=== PATIENT | male | born 1985 | race Asian ===

== ENCOUNTER 2017-01-26 20:29 | Emergency (ER) | payer MEDICAID, OTHER ==
[2017-01-26] MEDS ORDERED: EPINEPHRINE INJ/PF 1 MG/1 ML AMPULE SUBCUT PRN (20:50)
[2017-01-26] MEDS ORDERED: FAMOTIDINE 20 MG TABLET PO ONE (20:52)
--- NOTE | 2017-01-26 20:55 | ER Document Report ---
ED Medical Screen (RME) - General Chief Complaint: Allergic Reaction Stated Complaint: RASH Time Seen by Provider: 01/26/17 20:49 Notes: 31-year-old has hives to the face and all over. Only known recent ingestion is an [id number] sinus product containing Tylenol, phenylephrine, and guaifenesin. There is no dye color in the tablets. He does list an allergy to diphenhydramine, chlorpheniramine, phenylephrine and pseudoephedrine. His only real medication is Risperdal. I have greeted and performed a rapid initial assessment of this patient. A comprehensive ED assessment and evaluation of the patient, analysis of test results and completion of the medical decision making process will be conducted by additional ED providers. TRAVEL OUTSIDE OF THE [place] IN LAST 30 DAYS: No - Related Data Allergies/Adverse Reactions: chlorpheniramine maleate [From Robitussin Cough & Cold] Allergy (Verified 20:49) dextromethorphan HBr [From Robitussin Cough & Cold] Allergy (Verified 01/26/17 20:49) diphenhydramine HCl [From Robitussin Cough & Cold] Allergy (Verified 01/26/17 20 :49) phenylephrine HCl [From Robitussin Cough & Cold] Allergy (Verified 01/26/17 20: 49) pseudoephedrine HCl [From Robitussin Cough & Cold] Allergy (Verified 01/26/17 20 :49) Past Medical History - Social History Chew tobacco use (# tins/day): No Frequency of alcohol use: None Drug Abuse: None Renal/ Medical History: Denies: Hx Peritoneal Dialysis Psychiatric Medical History: Reports: Hx Depression, Hx Schizophrenia Surgical Hx: Negative - Immunizations Hx Diphtheria, Pertussis, Tetanus Vaccination: No - unknown History of Influenza Vaccine for 01/2017 - 06/2017 Season: No Physical Exam - Vital signs Vitals: Temp Pulse Resp BP Pulse Ox 97.6 F 114 H 16 143/78 H 97 01/26/17 20:44 01/26/17 20:44 01/26/17 20:44 01/26/17 20:44 01/26/17 20:44 Course - Vital Signs Vital signs: Temp Pulse Resp BP Pulse Ox 97.6 F 114 H 16 143/78 H 97 01/26/17 20:44 01/26/17 20:44 01/26/17 20:44 01/26/17 20:44 01/26/17 20:44
[2017-01-26] MEDS ORDERED: DEXAMETHASONE 4 MG TABLET PO ONE (21:15)
[2017-01-26] MEDS ORDERED: EPINEPHRINE INJ/PF 1 MG/1 ML AMPULE IM ONE (21:15)
--- NOTE | 2017-01-26 21:17 | ER Document Report ---
ED General - General Chief Complaint: Allergic Reaction Stated Complaint: RASH Time Seen by Provider: 01/26/17 20:49 Notes: Patient is a 31-year-old male with a past medical history who presents with acute onset of urticaria, facial swelling, difficulty breathing and lightheadedness after taking a combo cold and nasal congestion medication that contained acetaminophen, guaifenesin, and phenylephrine. Approximately 40 minutes of taking his medication the symptoms did present. They have been getting progressively worse since onset. Nothing improves or worsens his symptoms. His mother the bedside does report that as a child he did have a similar reaction to a cold medication at that time but she is uncertain of the medication that did treatment reaction. TRAVEL OUTSIDE OF THE [place] IN LAST 30 DAYS: No - Related Data Allergies/Adverse Reactions: chlorpheniramine maleate [From Robitussin Cough & Cold] Allergy (Verified 20:49) dextromethorphan HBr [From Robitussin Cough & Cold] Allergy (Verified 01/26/17 20:49) diphenhydramine HCl [From Robitussin Cough & Cold] Allergy (Verified 01/26/17 20 :49) phenylephrine HCl [From Robitussin Cough & Cold] Allergy (Verified 01/26/17 20: 49) pseudoephedrine HCl [From Robitussin Cough & Cold] Allergy (Verified 01/26/17 20 :49) Past Medical History - General Information source: Patient - Social History Smoking Status: Current Every Day Smoker Chew tobacco use (# tins/day): No Frequency of alcohol use: None Drug Abuse: None Lives with: Family Family History: Reviewed & Not Pertinent Patient has suicidal ideation: No Patient has homicidal ideation: No Renal/ Medical History: Denies: Hx Peritoneal Dialysis Psychiatric Medical History: Reports: Hx Depression, Hx Schizophrenia Surgical Hx: Negative - Immunizations Hx Diphtheria, Pertussis, Tetanus Vaccination: No - unknown Review of Systems - Review of Systems Notes: Constitutional: Negative for fever. HENT: Negative for sore throat. Eyes: Negative for visual changes. Cardiovascular: Negative for chest pain. Respiratory: Positive for shortness of breath. Gastrointestinal: Negative for abdominal pain, vomiting or diarrhea. Genitourinary: Negative for dysuria. Musculoskeletal: Negative for back pain. Skin: Positive for rash. Neurological: Negative for headaches, weakness or numbness. 10 point ROS negative except as marked above and in HPI. Physical Exam - Vital signs Vitals: Temp Pulse Resp BP Pulse Ox 97.6 F 114 H 16 143/78 H 97 01/26/17 20:44 01/26/17 20:44 01/26/17 20:44 01/26/17 20:44 01/26/17 20:44 Interpretation: Tachycardic Notes: PHYSICAL EXAMINATION: GENERAL: Well-appearing, well-nourished and in no acute distress. HEAD: Atraumatic, normocephalic. EYES: Pupils equal round and reactive to light, extraocular movements intact, sclera anicteric, conjunctiva are normal. ENT: nares patent, oropharynx clear without exudates. Moist mucous membranes. NECK: Normal range of motion, supple without lymphadenopathy LUNGS: Breath sounds clear to auscultation bilaterally and equal. Scant wheezing on the inspiratory phase. HEART: Regular rate and rhythm without murmurs ABDOMEN: Soft, nontender, normoactive bowel sounds. No guarding, no rebound. No masses appreciated. EXTREMITIES: Normal range of motion, no pitting or edema. No cyanosis. NEUROLOGICAL: No focal neurological deficits. Moves all extremities spontaneously and on command. PSYCH: Normal mood, normal affect. SKIN: Warm, Dry, normal turgor, diffuse urticaria over the chest, bilateral upper extremities and neck Course - Re-evaluation Re-evalutation: 01/26/17 21:16 Patient presents with acute anaphylaxis with facial swelling, diffuse urticaria and wheezing. Patient in triage was immediately given famotidine and subcutaneous epinephrine. As soon as the patient was brought back to the emergency department he was again reassess. I found patient to be tachycardic although in no acute distress. Remains with diffuse urticaria and scant wheezing. Will give an additional dose of 0.5 mg of intramuscular epinephrine and oral dexamethasone. 01/26/17 22:04 Patient remains without any further urticarial lesions, wheezing, stridor, facial swelling and has not had any vomiting or diarrhea. I have informed him that he is never to take dexamethasone or guaifenesin again is 1 of these 2 substances is causing him to have an anaphylactic reaction and he apparently had a similar symptom as a child after receiving a cough and cold medicine. At this time will discharge with return precautions and follow-up recommendations. Verbal discharge instructions given a the bedside and opportunity for questions given. Medication warnings reviewed. Patient is in agreement with this plan and has verbalized understanding of return precautions and the need for primary care follow-up in the next 24-72 hours. - Vital Signs Vital signs: Temp Pulse Resp BP Pulse Ox 97.6 F 114 H 22 H 149/82 H 97 01/26/17 20:44 01/26/17 20:44 01/26/17 22:00 01/26/17 22:00 01/26/17 22:00 Discharge - Discharge Clinical Impression: Anaphylactic reaction Qualifiers: Encounter type: initial encounter Qualified Code(s): T78.2XXA - Anaphylactic shock, unspecified, initial encounter Condition: Good Disposition: HOME, SELF-CARE Additional Instructions: IF YOU DEVELOP DIFFICULTY BREATHING, RETURN OF HIVES, VOMITING, LIGHTHEADEDNESS , CALL 911. Please never take a medication that contains either guaifenesin or phenylephrine as you have a severe allergy to 1 of these 2 medications. Referrals: NAIF LE, [facility] [Primary Care Provider] - Follow up as needed
[2017-01-26 22:03] VITALS: BP 149/82
== END 2017-01-26 22:15 | disposition home or self-care (01) ==
LOC: ER 20:29
DX: T78.2XXA Anaphylactic shock, unspecified, initial encounter (principal); R21 Rash and other nonspecific skin eruption; R22.0 Localized swelling, mass and lump, head; R06.02 Shortness of breath; R09.81 Nasal congestion; F17.200 Nicotine dependence, unspecified, uncomplicated; X58.XXXA Exposure to other specified factors, initial encounter
CPT/HCPCS: 99284; 96372; J3490 ×2; J0171